=== PATIENT | male | born 1960 | race Two or more races ===

== ENCOUNTER 2023-11-29 21:55 | Emergency (ER) | payer OTHER ==
[~2023-11-29] VITALS: Ht 167.6 cm; Wt 108.9 kg
[2023-11-29] MEDS ORDERED: LIPITOR20 MG PO (22:16)
[2023-11-29] MEDS ORDERED: LYRICA100 MG PO (22:16)
[2023-11-29] MEDS ORDERED: hydrOXYzine PAMOATE 50 MG CAPSULE PO STA (22:44)
[2023-11-29 23:08] LABS: HEMATOCRIT 43.1 % (39.0-48.0); MEAN CELL VOLUME 91.6 fL (80.0-100.00); MEAN CORPUSCULAR HGB CONC 34.9 g/dl (32.0-36.0); PLATELET COUNT 227 K/uL (150-450); RED CELL DISTRIBUTION WIDTH 13.8 % (11.5-14.5)
[2023-11-29] MEDS ORDERED: 0.9 % SODIUM CHLORIDE 1,000 ML IV STA (23:10)
[2023-11-29 23:24] LABS: CALCIUM 9.3 mg/dL (8.5-10.1); CREATININE SERUM 1.23 mg/dL (0.70-1.30); GFR 59.82; POTASSIUM 3.95 mEq/L (3.5-5.1)
[2023-11-30 01:45] LABS: PARTIAL THROMBOPLASTIN TIME 29.3 SECONDS (22.0-34.0); PROTHROMBIN TIME 10.5 SECONDS (9.0-11.5)
== END 2023-11-30 05:00 | disposition home or self-care (01) ==
LOC: ER 21:56
PROVIDERS: Emergency Medicine
DX: I47.10 Supraventricular tachycardia, unspecified (principal)